=== PATIENT | male | born 1940 | race Caucasian/White ===

== ENCOUNTER 2019-12-11 06:18 | Inpatient (IN) ==
[~2019-12-11 06:18] MED LIST: Vancomycin 1,000 MG, Sodium Chloride IRRigation 1,000 ML IR ONE
[2019-12-11] MEDS ORDERED: CeFAZolin Syr 2,000MG/20 ML 2,000 MG/20 ML SYRINGE IVPB ONE (06:41)
[2019-12-11] MEDS ORDERED: Ringers Solution, Lactated 1,000 ML IVC SCH (06:45)
[2019-12-11] MEDS ORDERED: Heparin 1,000 UNITS/500 mL 1,500 ML ONE (06:46)
[2019-12-11] MEDS ORDERED: Isovue-300 150 ML INFUS..BTL ONE (06:47)
[2019-12-11] MEDS ORDERED: *HR* Rocuronium Bromide 50 MG/5 ML VIAL ONE ×3 (06:51→10:31)
[2019-12-11] MEDS ORDERED: *HR* FentaNYL (PF) 100 MCG/2 ML VIAL ONE ×2 (06:51→10:32)
[2019-12-11] MEDS ORDERED: Lidocaine -MPF 2% 2 ML VIAL ONE ×2 (06:51→10:31)
[2019-12-11] MEDS ORDERED: Lidocaine HCL 4 ML Topical Solution (Laryng-O-Jet Kit Sterile Pak) TP ONE ×2 (06:51→10:31)
[2019-12-11] MEDS ORDERED: *HR* Propofol 200 MG/20 ML VIAL IVP ONE ×2 (06:51→10:31)
[2019-12-11] MEDS ORDERED: Ondansetron 4 MG/2 ML VIAL ONE ×2 (06:51→10:31)
[2019-12-11] MEDS ORDERED: Dexamethasone 4 MG/ML VIAL ONE ×2 (06:51→10:31)
[2019-12-11] MEDS ORDERED: *HR* Labetalol 20 MG/4 ML SYRINGE IVP PRN ×2 (06:52→12:57)
[2019-12-11] MEDS ORDERED: *HR* FentaNYL (PF) 100 MCG/2 ML VIAL IVP PRN (06:52)
[2019-12-11] MEDS ORDERED: Acetaminophen IV 1,000 MG/100 ML INFUS..BTL IVPB ONE (06:52)
[2019-12-11] MEDS ORDERED: *HR* Promethazine 25 MG/ML VIAL IVP PRN (06:52)
[2019-12-11] MEDS ORDERED: *HR* OxyCODONE Immed Rel 5 MG TABLET PO PRN ×2 (06:52→12:57)
[2019-12-11] MEDS ORDERED: Ondansetron 4 MG/2 ML VIAL IVP ONE (06:52)
[2019-12-11] MEDS ORDERED: *HR* Phenylephrine 10 MG/ML VIAL ONE (07:07)
[2019-12-11] MEDS ORDERED: NiCARdipine 2.5 MG/10 ML Syringe IVPB ONE (07:09)
[2019-12-11] MEDS ORDERED: Heparin 1,000 UNITS/500 mL 500 ML ONE (07:25)
[2019-12-11] MEDS ORDERED: *HR* Heparin 5,000 UNIT/ML VIAL ONE (07:42)
[2019-12-11] MEDS ORDERED: EPHEDrine 50 MG/ML VIAL ONE (08:32)
[2019-12-11] MEDS ORDERED: Lidocaine Jelly 6ml 1 APPL/6 ML JEL.PF.APP ONE (08:54)
[2019-12-11] MEDS ORDERED: Acetaminophen 325 MG TABLET PO PRN (12:57)
[2019-12-11] MEDS ORDERED: Naloxone 0.4 MG/ML INJ IVP PRN (12:57)
[2019-12-11] MEDS ORDERED: 0.9 % Sodium Chloride 1,000 ML IVC SCH (12:57)
[2019-12-11] MEDS ORDERED: *HR* HYDROcodone/Acet 5/325 mg TABLET PO PRN (12:57)
[2019-12-11] MEDS: *HR* Acetylcysteine 20% 600 MG/3 ML ORAL SYRINGE PO SCH ×2 (13:57→20:23)
[2019-12-11] MEDS: ceFAZolin 2,000 MG in 0.9 % Sodium Chloride 100 ML IVPB SCH ×2 (16:03→23:21)
[2019-12-11] MEDS: *HR* Metoprolol 5 MG/5 ML VIAL IVP SCH ×2 (17:50→23:22)
[2019-12-11] MEDS ORDERED: Cholecalciferol (D-3) 1,000 UNIT (25MCG) TABLET PO SCH (21:00)
[2019-12-11] MEDS ORDERED: NON-FORMULARY MEDICATION 1 EACH EACH (Krill/Om-3/Dha/Epa/Phospho/Ast [Krill Oil 1,000 Mg S PO SCH (21:00)
[2019-12-11] MEDS ORDERED: Aspirin 325 MG TABLET PO SCH (21:00)
[2019-12-12 04:17] LABS: Basophils % 0.1 %; Hematocrit 30.5 % (37.5-50.1); Immature Granulocytes % 0.8 % (0-4); Lymphocytes # 1.8 K/mcL (0.6-4.6); Lymphocytes % 8.9 %; Mean Corpuscular HGB Conc 32.5 g/dL (31.6-35.5); Mean Corpuscular Hemoglobin 33.1 pg (28.0-33.3); Mean Platelet Volume 10.8 fL (9.4-12.4); Monocytes # 1.9 K/mcL (0.0-1.3); Monocytes % 9.4 %; Neutrophils # 16.2 K/mcL (1.6-8.9); Platelet Count 148 K/mcL (140-400); Red Blood Count 2.99 M/mcL (4.19-5.50); Red Cell Distribution Width 13.4 % (11.5-14.5); Segmented Neutrophils % 80.8 %
[2019-12-12 04:18] LABS: Hemoglobin 9.9 g/dL (12.9-16.9); White Blood Count 20.1 K/mcL (4.3-11.1)
[2019-12-12 04:29] LABS: Calcium 8.2 mg/dL (8.6-10.3); Potassium 4.7 mEq/L (3.5-5.1)
[2019-12-12] MEDS: *HR* Metoprolol 5 MG/5 ML VIAL IVP SCH (04:41)
[2019-12-12] MEDS: *HR* Heparin 5,000 UNIT/ML VIAL SQ SCH ×2 (04:52→18:05)
[2019-12-12] MEDS ORDERED: *HR* Heparin 5,000 UNIT/ML VIAL SQ SCH (06:00)
[2019-12-12] MEDS ORDERED: 0.9 % Sodium Chloride 500 ML IVC ONE (08:09)
[2019-12-12] MEDS ORDERED: Multivit/Ca/Min/Fe/FA 1 TAB TABLET PO SCH (09:00)
[2019-12-12] MEDS ORDERED: Ondansetron 4 MG/2 ML VIAL IVP PRN (10:11)
[2019-12-12] MEDS ORDERED: 0.9 % Sodium Chloride 1,000 ML IVC SCH (10:15)
[2019-12-12 15:16] VITALS: BP 115/57
[2019-12-12] MEDS ORDERED: lisinopriL 20 MG TABLET PO SCH (21:00)
== END 2019-12-12 19:05 | disposition home or self-care (01) | DRG 269 ==
LOC: SAMDAY 06:18 → 2NNU 13:02
PROVIDERS: ADMIT Surgery; ATTEND Surgery

== ENCOUNTER 2019-12-16 00:07 | Observation (INO) ==
[2019-12-16] MEDS ORDERED: Isovue-370 500 ML BOTTLE IVP ONE (00:11)
[2019-12-16] MEDS ORDERED: Ipratropium/Albuterol Neb 3 ML IH ONE (00:11)
[2019-12-16 00:53] LABS: Basophils # 0.1 K/mcL (0.0-0.2); Basophils % 0.4 %; Eosinophils # 0.2 K/mcL (0.0-0.6); Eosinophils % 1.4 %; Immature Granulocytes % 0.9 % (0-4); Lymphocytes # 1.4 K/mcL (0.6-4.6); Lymphocytes % 8.6 %; Mean Corpuscular HGB Conc 33.3 g/dL (31.6-35.5); Mean Corpuscular Volume 101.9 fL (83.0-100.0); Monocytes # 2.4 K/mcL (0.0-1.3); Monocytes % 15.1 %; Neutrophils # 11.7 K/mcL (1.6-8.9); Platelet Count 152 K/mcL (140-400); Red Blood Count 2.65 M/mcL (4.19-5.50); Red Cell Distribution Width 13.4 % (11.5-14.5); Segmented Neutrophils % 73.6 %; White Blood Count 15.9 K/mcL (4.3-11.1)
[2019-12-16 01:00] LABS: INR 1.1; Prothrombin Time 12.9 Seconds (9.4-12.1)
[2019-12-16 01:03] LABS: Activated Partial Thrombo Time 26.5 Seconds (26.0-36.0)
[2019-12-16 01:06] LABS: Bilirubin,Urine Negative (Negative); Blood,Urine Small (Negative); Clarity,Urine Cloudy (Clear); Color,Urine Yellow (Yellow); Glucose,Urine (UA) Normal (Normal); Ketones,Urine Trace mg/dL (Negative); Leukocyte Esterase,Urine Small (Negative); Nitrite,Urine Negative (Negative); PH,Urine 5.5 pH Units (5.0-8.0); Protein,Urine 30 mg/dL (Neg-Trace); Specific Gravity,Urine 1.022 (1.010-1.025); Urobilinogen,Urine Normal (Normal)
[2019-12-16 01:08] LABS: Bacteria,Urine None Seen per hpf (None-Few); Hyaline Casts,Urine None Seen per lpf (None-Few); Squamous Epithelial Cell,Urine Many per lpf (None-Few)
[2019-12-16 01:14] LABS: Albumin 3.1 g/dL (3.5-5.7); Albumin/Globulin Ratio 1.2 (1.1-2.2); Bilirubin,Total 0.7 mg/dL (0.3-1.0); Calcium 8.5 mg/dL (8.6-10.3); Globulin 2.5 g/dL (2.4-3.5); Potassium 4.7 mEq/L (3.5-5.1); Total Protein 5.6 g/dL (6.4-8.9)
[2019-12-16 02:05] LABS: Troponin I 0.09 ng/mL (< 0.04)
[2019-12-16] MEDS ORDERED: Furosemide 40 MG/4 ML VIAL IVP ONE (02:44)
[2019-12-16] MEDS ORDERED: Aspirin 325 MG TABLET PO ONE (02:53)
[2019-12-16] MEDS ORDERED: Naloxone 0.4 MG/ML INJ IVP PRN (03:26)
[2019-12-16] MEDS ORDERED: Ondansetron 4 MG/2 ML VIAL IVP PRN (03:26)
[2019-12-16] MEDS ORDERED: Acetaminophen 325 MG TABLET PO PRN (03:26)
[2019-12-16] MEDS ORDERED: Dextrose Gel 15 GM/37.5 ML TUBE PO PRN ×2 (05:41)
[2019-12-16] MEDS ORDERED: *HR* Dextrose 50 % in Water (Syg) 50 ML SYRINGE IVP PRN (05:41)
[2019-12-16] MEDS ORDERED: D5% in Water 1,000 ML IVC PRN (05:41)
[2019-12-16] MEDS ORDERED: levoFLOXacin 750 MG/150 ML 750 MG/150 ML BAG IVPB ONE (06:00)
[2019-12-16] MEDS: levoFLOXacin 750 MG/150 ML 750 MG/150 ML BAG IVPB SCH (06:20)
[2019-12-16] MEDS ORDERED: Insulin LISPRO 300 UNITS/3 ML VIAL SQ SCH (08:00)
[2019-12-16 08:57] LABS: Adenovirus Not Detected (Not Detect); Coronavirus 229E Not Detected (Not Detect); Coronavirus HKU1 Not Detected (Not Detect); Coronavirus NL63 Not Detected (Not Detect); Coronavirus OC43 Not Detected (Not Detect); Human Metapneumovirus Not Detected (Not Detect); Human Rhinovirus/Enterovirus Not Detected (Not Detect); Influenza A Subtype 2009 H1 Not Detected (Not Detect)
[2019-12-16 08:58] LABS: Bordetella Pertussis Not Detected (Not Detect); Chlamydophila pneumoniae Not Detected (Not Detect); Influenza B Not Detected (Not Detect); Mycoplasma pneumoniae Not Detected (Not Detect); Parainfluenza Virus 1 Not Detected (Not Detect); Parainfluenza Virus 2 Not Detected (Not Detect); Parainfluenza Virus 3 Not Detected (Not Detect); Parainfluenza Virus 4 Not Detected (Not Detect); Respiratory Syncytial Virus Not Detected (Not Detect)
[2019-12-16] MEDS: *HR* Heparin 5,000 UNIT/ML VIAL SQ SCH ×2 (12:56→23:03)
[2019-12-16] MEDS ORDERED: Insulin DETEMIR 100 UNIT/ML X5UNITS SQ SCH (21:00)
[2019-12-16] MEDS: Aspirin 325 MG TABLET PO SCH (23:03)
[2019-12-17] MEDS: *HR* Heparin 5,000 UNIT/ML VIAL SQ SCH ×3 (05:40→21:57)
[2019-12-17 05:49] LABS: Hematocrit 25.2 % (37.5-50.1); Hemoglobin 8.4 g/dL (12.9-16.9); Mean Corpuscular HGB Conc 33.3 g/dL (31.6-35.5); Mean Corpuscular Hemoglobin 33.7 pg (28.0-33.3); Mean Corpuscular Volume 101.2 fL (83.0-100.0); Mean Platelet Volume 10.8 fL (9.4-12.4); Platelet Count 161 K/mcL (140-400); Red Blood Count 2.49 M/mcL (4.19-5.50); Red Cell Distribution Width 13.4 % (11.5-14.5)
[2019-12-17 06:12] LABS: Calcium 8.6 mg/dL (8.6-10.3); Potassium 4.7 mEq/L (3.5-5.1)
[2019-12-17 06:35] LABS: Folate > 22.3 ng/mL (3.0-16.0); Vitamin B12 575 pg/mL (250-1100)
[2019-12-17] MEDS: Metoprolol XL (24 HR) Succ 25 MG TAB.ER.24H PO SCH (09:20)
[2019-12-17] MEDS ORDERED: Ferumoxytol 510 MG in 0.9 % Sodium Chloride 100 ML IVPB ONE (10:55)
[2019-12-17] MEDS ORDERED: amLODIPine 5 MG TABLET PO SCH (21:00)
[2019-12-17] MEDS: Aspirin 325 MG TABLET PO SCH (21:58)
[2019-12-18 05:34] LABS: Basophils # 0.1 K/mcL (0.0-0.2); Basophils % 0.6 %; Eosinophils # 0.4 K/mcL (0.0-0.6); Eosinophils % 3.9 %; Hematocrit 24.8 % (37.5-50.1); Hemoglobin 8.4 g/dL (12.9-16.9); Immature Granulocytes % 1.6 % (0-4); Lymphocytes # 1.8 K/mcL (0.6-4.6); Lymphocytes % 16.1 %; Mean Corpuscular HGB Conc 33.9 g/dL (31.6-35.5); Mean Corpuscular Hemoglobin 34.4 pg (28.0-33.3); Mean Corpuscular Volume 101.6 fL (83.0-100.0); Mean Platelet Volume 10.8 fL (9.4-12.4); Monocytes # 1.7 K/mcL (0.0-1.3); Monocytes % 15.5 %; Neutrophils # 6.8 K/mcL (1.6-8.9); Platelet Count 182 K/mcL (140-400); Red Blood Count 2.44 M/mcL (4.19-5.50); Red Cell Distribution Width 13.2 % (11.5-14.5); Segmented Neutrophils % 62.3 %
[2019-12-18 05:59] LABS: Calcium 8.7 mg/dL (8.6-10.3); Magnesium 1.7 mg/dL (1.6-2.6); Potassium 4.5 mEq/L (3.5-5.1)
[2019-12-18] MEDS: levoFLOXacin 750 MG/150 ML 750 MG/150 ML BAG IVPB SCH (06:15)
[2019-12-18] MEDS: *HR* Heparin 5,000 UNIT/ML VIAL SQ SCH (06:16)
[2019-12-18 07:44] VITALS: BP 108/82
[2019-12-18] MEDS: Metoprolol XL (24 HR) Succ 25 MG TAB.ER.24H PO SCH (11:06)
== END 2019-12-18 11:30 | disposition home or self-care (01) ==
LOC: SUATTDRO → EMEROOARM 00:07 → 2ANU 00:07 → SUATTDRO 03:34 → 2ANU 04:09
PROVIDERS: ADMIT Pharmacist; ATTEND Pharmacist